=== PATIENT | female | born 1955 | race Two or more races ===

== ENCOUNTER → 2022-03-30 08:00 | Outpatient (CLI) | payer OTHER ==
[~2022-03-30 08:00] MED LIST: HYDROCHL PO; SYNTH PO; TOPROL XL100 M1 PO; TOPROL XL50 M1 PO
== END | disposition home or self-care (01) ==
LOC: LAB 08:00 → EDSTATUS 04-02 10:30 → SURG 04-02 10:30
PROVIDERS: ATTEND Surgery
DX: K56.600 Partial intestinal obstruction, unspecified as to cause (principal); K56.690 Other partial intestinal obstruction; K57.30 Diverticulosis of large intestine without perforation or abscess without bleeding; R14.0 Abdominal distension (gaseous); R10.32 Left lower quadrant pain; R97.0 Elevated carcinoembryonic antigen [CEA]

== ENCOUNTER 2023-10-04 10:36 | Inpatient (IN) | payer OTHER ==
[~2023-10-04] VITALS: Ht 175.3 cm; Wt 78.9 kg
[~2023-10-04 10:36] MED LIST changes: -SYNTH PO; +SYNTHROID PO
[2023-10-04] MEDS ORDERED: XANAX1 MG PO (11:05)
[2023-10-11] MEDS ORDERED: CEFTRIAXONE SODIUM 2,000 MG VIAL ONE (09:42)
[2023-10-11] MEDS ORDERED: METRONIDAZOLE/SODIUM CHLORIDE 500 MG/100 ML PIGGYBACK IV ONE ×2 (09:43→17:49)
[2023-10-11] MEDS ORDERED: 0.9 % SODIUM CHLORIDE 1,000 ML IV SCH (13:45)
[2023-10-11] MEDS ORDERED: DEXTROSE 50 % IN WATER 0.5 G/ML DISP.SYRIN IV PRN (13:45)
[2023-10-11] MEDS ORDERED: MORPHINE SULFATE 4 MG/ML CARTRIDGE IV PRN (13:45)
[2023-10-11] MEDS ORDERED: OxyCODONE HCL 5 MG TABLET (ROXICODONE) PO PRN (13:45)
[2023-10-11] MEDS ORDERED: ONDANSETRON HCL 2 MG/ML VIAL IV PRN (13:45)
[2023-10-11] MEDS ORDERED: ACETAMINOPHEN 500 MG GEL..CAP PO SCH (14:00)
[2023-10-11] MEDS ORDERED: MORPHINE SULFATE 4 MG/ML VIAL IV ONE ×2 (14:40→16:10)
[2023-10-11] MEDS ORDERED: ENALAPRILAT DIHYDRATE 1.25 MG/ML VIAL IV PRN (15:00)
[2023-10-11 15:34] LABS: ABG PH 7.302 (7.35-7.45); ABG PO2 108.5 mmHg (80-100); ABG pCO2 54.1 mmHg (35-45); BASE EXCESS -1.2 mmol/l; BICARBONATE 26.1 mmol/l (23-25); SaO2 97.5 %; Tco2 27.8 mmol/l
[2023-10-11 15:48] LABS: allen test SATISFACTORY; o2 21 %; puncture site RADIAL RIGHT
[2023-10-11 15:49] LABS: HEMATOCRIT 41.5 % (36.0-45.00); HEMOGLOBIN 14.1 g/dL (12.0-15.00); MEAN CORPUSCULAR HEMOGLOBIN 33.3 pg (27.00-32.0); PLATELET COUNT 290 K/uL (150-450); RED BLOOD COUNT 4.24 M/uL (4.00-6.00); RED CELL DISTRIBUTION WIDTH 14.6 % (11.5-14.5)
[2023-10-11 16:15] LABS: ALBUMIN 3.7 gm/dL (3.4-5.0); CALCIUM 9.3 mg/dL (8.5-10.1); CREATININE SERUM 1.22 mg/dL (0.55-1.02); GFR 43.83; PHOSPHOROUS 4.4 mg/dL (2.5-4.9); POTASSIUM 4.46 mEq/L (3.5-5.1)
[2023-10-11] MEDS ORDERED: POLYETHYLENE GLYCOL 3350 17 GM BLIST.PACK PO SCH (17:00)
[2023-10-11] MEDS ORDERED: METRONIDAZOLE/SODIUM CHLORIDE 500 MG/100 ML PIGGYBACK IV SCH (17:00)
[2023-10-11] MEDS ORDERED: GABAPENTIN 300 MG CAPSULE PO SCH (17:00)
[2023-10-11] MEDS ORDERED: HYOSCYAMINE SULFATE 0.125 MG TAB.SUBL SL SCH (17:00)
[2023-10-11] MEDS ORDERED: FAMOTIDINE/PF 20 MG/2 ML VIAL IV PUSH SCH (21:00)
[2023-10-11] MEDS ORDERED: METOPROLOL SUCCINATE 50 MG TAB.SR.24H PO SCH (21:00)
[2023-10-12] MEDS ORDERED: LEVOTHYROXINE SODIUM 175 MCG TABLET PO SCH (06:00)
[2023-10-12 06:53] LABS: HEMOGLOBIN 12.7 g/dL (12.0-15.00); MEAN CORPUSCULAR HEMOGLOBIN 32.8 pg (27.00-32.0); MEAN CORPUSCULAR HGB CONC 33.5 g/dl (32.0-36.0); PLATELET COUNT 176 K/uL (150-450); RED BLOOD COUNT 3.87 M/uL (4.00-6.00); RED CELL DISTRIBUTION WIDTH 14.4 % (11.5-14.5)
[2023-10-12 07:13] LABS: CALCIUM 8.2 mg/dL (8.5-10.1); CREATININE SERUM 1.14 mg/dL (0.55-1.02); GFR 47.4; MAGNESIUM 1.9 mg/dL (1.8-2.4); PHOSPHOROUS 2.9 mg/dL (2.5-4.9); POTASSIUM 3.66 mEq/L (3.5-5.1)
[2023-10-12] MEDS ORDERED: METOPROLOL SUCCINATE 100 MG TAB.SR.24H PO SCH (09:00)
[2023-10-12 12:01] LABS: ABG PH 7.387 (7.35-7.45); ABG PO2 60.6 mmHg (80-100); ABG pCO2 42.4 mmHg (35-45); BASE EXCESS -0.2 mmol/l; SaO2 90.5 %; Tco2 26.3 mmol/l
[2023-10-12 12:04] LABS: o2 21 %
[2023-10-12 12:05] LABS: allen test SATISFACTORY; puncture site RADIAL RIGHT
[2023-10-12] MEDS ORDERED: ENOXAPARIN SODIUM 40 MG/0.4 ML SYRINGE SUBCUTANEO SCH (17:00)
[2023-10-13] MEDS ORDERED: TRAMADOL HCL 50 MG TABLET PO PRN (07:15)
[2023-10-13 08:05] LABS: HEMATOCRIT 33.7 % (36.0-45.00); HEMOGLOBIN 11.8 g/dL (12.0-15.00); MEAN CELL VOLUME 97.3 fL (80.00-100.00); MEAN CORPUSCULAR HEMOGLOBIN 34.1 pg (27.00-32.0); PLATELET COUNT 174 K/uL (150-450); RED BLOOD COUNT 3.46 M/uL (4.00-6.00); RED CELL DISTRIBUTION WIDTH 14.1 % (11.5-14.5)
[2023-10-13 08:37] LABS: CALCIUM 8.6 mg/dL (8.5-10.1); CREATININE SERUM 0.84 mg/dL (0.55-1.02); GFR 67.42; POTASSIUM 3.75 mEq/L (3.5-5.1)
[2023-10-13] MEDS ORDERED: ENOXAPARIN SODIUM 40 MG/0.4 ML SYRINGE SUBCUTANEO SCH (09:00)
[2023-10-13] MEDS ORDERED: HYDROCHLOROTHIAZIDE 12.5 MG CAPSULE PO SCH (17:00)
[2023-10-14] MEDS ORDERED: LOSARTAN POTASSIUM 50 MG TABLET PO SCH (09:00)
[2023-10-14] MEDS ORDERED: PERCOCET 5-3251 EACH PO (10:32)
[2023-10-14] MEDS ORDERED: HYOSCYAMINE0.125 M1 SL (10:32)
[2023-10-14] MEDS ORDERED: PEPCID AC20 MG PO (10:32)
== END 2023-10-14 12:00 | disposition home or self-care (01) | DRG 331 ==
LOC: SURG 10-11 07:00 → O/R 10-11 07:48 → SURH 10-11 07:48 → SURG 10-11 11:30 → SURH 10-11 15:01
PROVIDERS: Internal Medicine Geriatric Medicine; Surgery; ADMIT Surgery; ATTEND Surgery
PROC: 0DBP4ZZ Excision of Rectum, Percutaneous Endoscopic Approach (ICD-10-PCS; 2023-10-11)
PROC: 07BC4ZZ Excision of Pelvis Lymphatic, Percutaneous Endoscopic Approach (ICD-10-PCS; 2023-10-11)
PROC: 0DJD8ZZ Inspection of Lower Intestinal Tract, Via Natural or Artificial Opening Endoscopic (ICD-10-PCS; 2023-10-11)
PROC: 0DTN4ZZ Resection of Sigmoid Colon, Percutaneous Endoscopic Approach (ICD-10-PCS; principal; 2023-10-11 07:00)
PROC: 4A12X4Z Monitoring of Cardiac Electrical Activity, External Approach (ICD-10-PCS; 2023-10-12)
DX: K56.600 Partial intestinal obstruction, unspecified as to cause (principal); K57.30 Diverticulosis of large intestine without perforation or abscess without bleeding; R59.0 Localized enlarged lymph nodes; R14.0 Abdominal distension (gaseous); I11.0 Hypertensive heart disease with heart failure; I50.9 Heart failure, unspecified